=== PATIENT | female | born 1985 | race Hispanic/Latino ===

== ENCOUNTER 2024-04-29 06:22 | Day surgery (SDC) | payer OTHER, SELFPAY ==
[2024-04-29] VITALS (9 sets, daily range): BP systolic 117–135; BP diastolic 73–102; PULSE 73–88; RESP 10–24; TEMP 36.2–36.6; O2SAT 95–99; BMI 48.0
--- NOTE | 2024-04-29 | PATH_ITS ---
[facility] Accession Number: [id number] No. of containers..01 Tissue . 01 Material submitted: . gallbladder - GALLBLADDER . 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 Negative for dysplasia and malignancy. MRV 05/01/2024 1603 Local . 01 Electronically signed: . Bindu Murcia MD, Pathologist NPI- [id number] . 01 Gross description: . Received in formalin with two patient identifiers and gallbladder, is an intact gallbladder (11.6 x 5.2 x 2.9 cm) with a junior to violaceous, unremarkable external surface. The cystic duct margin is inked blue, and no pericystic lymph node is identified. The lumen contains three yellow-orange bosselated calculi up to 3.0 cm in greatest dimension grossly obstructing the cystic duct. No bile is identified within the lumen. The mucosa is diffusely denuded and pale junior. The gordon are slightly stiff and presumed fibrous averaging 0.2 cm thick. No distinct lesions are identified. Youth Specialist sections to include the cystic duct margin and full thickness sections are submitted in A1. ([id number]) /MRV 04/30/2024 1205 Local . 01 Pathologist provided ICD-10: K80.20 . 01 CPT . 148034 Specimen Comment: A courtesy copy of this report has been sent to [phone] Performed at: [address] [id number] MD Tano Hoyos MD Phone: [phone]
[2024-04-29] MEDS: ACETAMINOPHEN 325 MG TABLET 975 MG PO (07:07)
[2024-04-29] MEDS: LACTATED RINGERS 1,000 ML 42 ML IV (07:07)
--- NOTE | 2024-04-29 07:27 | SUR.OPER ---
Supine on padded OR bed, head on pillow, safety belt at thigh, left arm padded and tucked at side. Right arm secured on padded arm board <90 degrees abduction. Legs uncrossed. Padded footboard in place. Tape over blanket to secure lower legs.
--- NOTE | 2024-04-29 07:55 | PM.PREOP ---
Pre-operative Note COVID-19 COVID-19 status: Not tested Interval Note History & Physical reviewed/Exam performed by Physician: Yes Changes to H&P: No ASA Class (for procedural sedation): II
[2024-04-29] MEDS: CEFAZOLIN VIAL 1 GM in SODIUM CHLORIDE 0.9% 100 ML IV (08:08)
[2024-04-29] MEDS: CEFAZOLIN 2 GM/100 ML PREMIX 100 ML IV (08:08)
[2024-04-29] MEDS: BUPIVACAINE 0.5% (PF) 30 ML, EPINEPHrine 0.15 MG INJ (08:37)
--- NOTE | 2024-04-29 09:28 | P.OP_ITS ---
Operative Date/Time/Diagnoses Date of procedure: 04/29/24 Time of procedure: 09:28 Pre-op diagnosis: Symptomatic cholelithiasis Post-op diagnosis: other (Gallbladder hydrops) Procedure & Clinicians Procedure: Laparoscopic cholecystectomy Same procedure as scheduled: Yes Surgeon: Curtis Barnes Abrasive Wheel Molder: Antonio Arias Anesthesia Type: General Operative Notes Procedure in detail: The patient was given preoperative antibiotics. The patient was brought to the operating room and placed on the table in the supine position. General endotracheal anesthesia was induced. The abdomen was prepped and draped. A time-out was performed. We made a 2 cm supraumbilical incision. We dissected down to the anterior sheath. We scored the fascia in the midline with cautery. One edge of the fascial defect was grasped with a Sherwin clamp to elevate the abdominal wall. We pierced the peritoneum with a Peon clamp. The Edilma port was placed and the abdomen was insufflated to 15 mmHg. A 5 mm 30 degree laparoscopic was inserted. There was no evidence of any injury from the entry. Next, we placed 5 mm ports in the subxiphoid position and right upper quadrant at the midclavicular line and anterior axillary line. The patient was then positioned in reverse Trendelenburg and the table was tilted to the left. The gallbladder was quite tense and distended and so we attempted to aspirate gallbladder with the needle but the gallbladder wall was too thick and fibrous. We then used the Bovie cautery to create a small hole and clear fluid consistent with hydrops gallbladder was allowed to drain from the gallbladder into the right upper quadrant. We suctioned most of it out with the suction medical information specialist. The gallbladder was then grasped at the dome and retracted cephalad. We could see a large stone impacted in the infundibulum. We then dissected the cystic structures with a combination of hook cautery and blunt dissection. We obtained a critical view. We placed clips on the cystic duct and artery and divided the cystic duct and artery sharply between the clips. The gallbladder was then dissected off the liver and placed in a specimen retrieval bag. We irrigated the right upper quadrant and all the aspirate returned clear. We then removed the 5 mm ports under direct vision we removed the Edilma port. We then injected some local into the fascia and closed the fascia with 2 interrupted 0 Vicryl sutures. The skin incisions were closed with 4-0 Monocryl and Steri-Strips were applied. Band-Aids were applied over the Steri-Strips. EBL: 30 mL Specimen: Gallbladder and contents Antonio HICKS provided assistance with exposure, retraction and closure of incisions. Post-operative Condition: stable Disposition: PACU
[2024-04-29] MEDS: ONDANSETRON 4 MG/2 ML INJ IV (10:02)
[2024-04-29] MEDS: OXYCODONE IR 5 MG TABLET PO ×2 (10:03→10:27)
[2024-04-29] MEDS: hydrOXYzine 50 MG/ML INJ IM (10:28)
== END 2024-04-29 11:02 | disposition home or self-care (01) ==
PROVIDERS: PCP Nurse Practitioner Family; Referring Provider Surgery; Visit Provider Surgery
PROC: 0FT44ZZ Resection of Gallbladder, Percutaneous Endoscopic Approach (ICD-10-PCS; CPT 47562; principal; 2024-04-29 07:45)
DX: K80.10 Calculus of gallbladder with chronic cholecystitis without obstruction (principal); K82.1 Hydrops of gallbladder
CPT/HCPCS: 47562; J0171; J0330; J0690; J1100; J1885; J2405; J2704; J3010; J3410; J3490